=== PATIENT | female | born 1950 | race Caucasian/White ===

== ENCOUNTER → 2017-08-14 | Outpatient (CLI) | payer OTHER | END | disposition home or self-care (01) | LOC: PETCFH 09:51 | PROVIDERS: ATTEND Specialist | DX: K80.20 Calculus of gallbladder without cholecystitis without obstruction (principal); D25.9 Leiomyoma of uterus, unspecified; D35.02 Benign neoplasm of left adrenal gland; D73.89 Other diseases of spleen; K57.30 Diverticulosis of large intestine without perforation or abscess without bleeding; I25.10 Atherosclerotic heart disease of native coronary artery without angina pectoris; I65.23 Occlusion and stenosis of bilateral carotid arteries; R91.1 Solitary pulmonary nodule; C83.10 Mantle cell lymphoma, unspecified site; D72.820 Lymphocytosis (symptomatic) | CPT/HCPCS: 78815; A9552 ==

== ENCOUNTER → 2017-08-14 | Outpatient (CLI) | payer OTHER | END | disposition home or self-care (01) | LOC: CFH 09:57 | PROVIDERS: ATTEND Specialist | DX: I08.2 Rheumatic disorders of both aortic and tricuspid valves (principal); I10 Essential (primary) hypertension; J44.9 Chronic obstructive pulmonary disease, unspecified; D72.820 Lymphocytosis (symptomatic); C85.90 Non-Hodgkin lymphoma, unspecified, unspecified site; Z87.891 Personal history of nicotine dependence | CPT/HCPCS: 93306 ==

== ENCOUNTER 2017-08-26 16:20 | Day surgery (SDC) | payer OTHER ==
[~2017-08-26] VITALS: Ht 160 cm; Wt 69.9 kg
[~2017-08-26 16:20] MED LIST: LIDOCAINE 1%, 2ML ONE
[2017-08-26] MEDS ORDERED: LACTATED RINGERS 1,000 ML IV SCH (16:42)
[2017-08-26] MEDS ORDERED: ALBU18HF INH (16:45)
[2017-08-26] MEDS ORDERED: PROP10TA PO (16:45)
[2017-08-26] MEDS ORDERED: UMEC1DIS INH (16:45)
[2017-08-26] MEDS ORDERED: TRAZ50TA18 PO (16:45)
[2017-08-26 16:57] VITALS: BP 138/79
[2017-08-26] MEDS ORDERED: LIDOCAINE 1%, 2ML SQ PRN (17:00)
[2017-08-26] MEDS ORDERED: FENTANYL PF 100 MCG/2ML ONE (19:30)
[2017-08-26] MEDS ORDERED: MIDAZOLAM 1 MG/ML, 2ML ONE (19:30)
[2017-08-26] MEDS ORDERED: CEFAZOLIN 1,000 MG ONE (19:35)
[2017-08-26] MEDS ORDERED: ONDANSETRON 2MG/ML, 2ML ONE (19:35)
[2017-08-26] MEDS ORDERED: DEXAMETHASONE 4 MG/ML, 1ML ONE (19:35)
[2017-08-26] MEDS ORDERED: PROPOFOL 10 MG/ML, 20ML ONE (19:35)
[2017-08-26] MEDS ORDERED: KETOROLAC 30 MG/1 ML ONE (19:40)
[2017-08-26] MEDS ORDERED: ALBUTEROL/IPRATROPIUM 2.5MG/0.5MG, 3 ML NPPB PRN (20:30)
[2017-08-26] MEDS ORDERED: FENTANYL PF 100 MCG/2ML IV PRN (20:30)
[2017-08-26] MEDS ORDERED: ONDANSETRON 2MG/ML, 2ML IVPush PRN ×2 (20:30→22:00)
[2017-08-26] MEDS ORDERED: PROMETHAZINE 25 MG/ML, 1ML IV PRN (20:30)
[2017-08-26] MEDS ORDERED: ACETAMINOPHEN 325 MG TABLET PO PRN (20:30)
[2017-08-26] MEDS ORDERED: OXYcodone 5 MG/5 ML ORAL.SOL UDC PO PRN (20:30)
[2017-08-26] MEDS ORDERED: DIAZEPAM 5 MG/ML, 2ML IVPush PRN (20:30)
[2017-08-26] MEDS ORDERED: hydrALAzine 20 MG/ML, 1ML IV PRN (20:30)
[2017-08-26] MEDS ORDERED: ALBUTEROL SULFATE 2.5 MG/3 ML NPPB PRN (20:30)
[2017-08-26] MEDS ORDERED: MEPERIDINE/PF 25MG/0.5ML IVPush PRN (20:30)
[2017-08-26] MEDS ORDERED: EPHEDRINE 50 MG/ML, 1ML IVPush PRN (20:30)
[2017-08-26] MEDS ORDERED: MIDAZOLAM 1 MG/ML, 2ML IV PRN (20:30)
[2017-08-26] MEDS ORDERED: LABETALOL 5MG/ML, 20ML IV PRN (20:30)
[2017-08-26] MEDS ORDERED: HYDROcodone/APAP 7.5-325MG/15ML UDC PO PRN (20:30)
[2017-08-26] MEDS ORDERED: HYDROmorphone 1 MG/ML, 1ML IV PRN (20:30)
[2017-08-26] MEDS ORDERED: METOPROLOL 1 MG/ML, 5ML IV PRN (20:30)
[2017-08-26] MEDS: HYDROcodone/APAP 5/325 TABLET PO PRN ×2 (21:48→22:29)
[2017-08-26] MEDS ORDERED: morphine SULFATE 10 MG/ML, 1ML IV PRN (22:00)
[2017-08-26] MEDS ORDERED: HYDR-3240 PO (22:01)
== END 2017-08-26 23:00 | disposition home or self-care (01) ==
LOC: OR 16:20 → 4NOR 20:53 → OR 23:00
PROVIDERS: ATTEND Surgery
DX: Z45.2 Encounter for adjustment and management of vascular access device (principal); I10 Essential (primary) hypertension; J44.9 Chronic obstructive pulmonary disease, unspecified; Z98.890 Other specified postprocedural states; Z87.891 Personal history of nicotine dependence
CPT/HCPCS: 36561; 71010; 77001; 93005; C1788; J0690; J1100; J1644; J1885; J2001; J2250; J2405; J2704; J3010; J3490; J7120

== ENCOUNTER 2017-09-24 11:00 | Inpatient (IN) | payer OTHER ==
[~2017-09-24] VITALS: Ht 160 cm; Wt 74.3 kg
[~2017-09-24 11:00] MED LIST changes: +ALBU18HF INH; +HYDR-3240 PO; -LIDOCAINE 1%, 2ML ONE; +PROP10TA PO; +TRAZ50TA18 PO; +UMEC1DIS INH
[2017-09-24 12:33] VITALS: BP 142/91
[2017-09-24 13:57] LABS: HEMATOCRIT 42.5 % (34.6-47.8); HEMOGLOBIN 14.2 g/dL (11.7-16.4); WHITE BLOOD COUNT 9.7 x10^3/uL (3.4-10)
[2017-09-24 14:07] LABS: ASPARTATE AMINO TRANSFERASE 17 U/L (15-37); BLOOD UREA NITROGEN 13 mg/dL (7-18)
[2017-09-24 14:10] LABS: LACTATE DEHYDROGENASE 286 U/L (84-246)
[2017-09-24] MEDS ORDERED: DIPHENHYDRAMINE 50 MG/ML, 1ML IVPush ONE (17:00)
[2017-09-24] MEDS ORDERED: FAMOTIDINE 20 MG/2 ML IVPush ONE (17:00)
[2017-09-24] MEDS ORDERED: ACETAMINOPHEN 325 MG TABLET PO ONE (17:00)
[2017-09-24] MEDS ORDERED: RITUXIMAB IV ONE (17:30)
[2017-09-24] MEDS ORDERED: SODIUM CHLORIDE 0.9% IV ONE ×2 (17:30→23:00)
[2017-09-24] MEDS: ALLOPURINOL 300 MG TABLET PO SCH (17:34)
[2017-09-24] MEDS: ENOXAPARIN 40 MG/0.4 ML SQ SCH (18:02)
[2017-09-24 20:41] VITALS: BP 136/80
[2017-09-24] MEDS ORDERED: SODIUM CHLORIDE 0.9% 500 ML IV ONE (22:00)
[2017-09-24] MEDS ORDERED: FOSAPREPITANT 150 MG in SODIUM CHLORIDE 0.9% 150 ML IV ONE (22:30)
[2017-09-24] MEDS ORDERED: ONDANSETRON 16 MG, DEXAMETHASONE 10 MG in SODIUM CHLORIDE 0.9% 50 ML IVPB SCH (22:30)
[2017-09-24] MEDS ORDERED: CISPLATIN IV ONE (23:00)
[2017-09-24] MEDS: DEXAMETHASONE 4 MG TABLET PO SCH (23:49)
[2017-09-25] MEDS: SODIUM CHLORIDE 0.9% 1,000 ML IV SCH ×3 (00:19→18:10)
[2017-09-25 01:37] VITALS: BP 105/62
[2017-09-25 06:14] LABS: HEMATOCRIT 38.2 % (34.6-47.8); HEMOGLOBIN 13.1 g/dL (11.7-16.4); WHITE BLOOD COUNT 7.2 x10^3/uL (3.4-10)
[2017-09-25 06:25] LABS: BLOOD UREA NITROGEN 13 mg/dL (7-18)
[2017-09-25 06:28] LABS: ASPARTATE AMINO TRANSFERASE 20 U/L (15-37)
[2017-09-25 09:21] VITALS: BP 157/78
[2017-09-25 13:51] VITALS: BP 144/75
[2017-09-25] MEDS: TRAZODONE 50MG TABLET PO PRN ×2 (14:51→22:32)
[2017-09-25] MEDS: ALLOPURINOL 300 MG TABLET PO SCH (18:09)
[2017-09-25] MEDS: ENOXAPARIN 40 MG/0.4 ML SQ SCH (18:09)
[2017-09-25 18:54] VITALS: BP 151/78
[2017-09-26] MEDS: DEXAMETHASONE 4 MG TABLET PO SCH ×2 (00:32→23:11)
[2017-09-26] MEDS: SODIUM CHLORIDE 0.9% 1,000 ML IV SCH ×3 (00:32→16:06)
[2017-09-26] MEDS: ONDANSETRON 16 MG, DEXAMETHASONE 10 MG in SODIUM CHLORIDE 0.9% 50 ML IVPB SCH (00:36)
[2017-09-26 00:48] VITALS: BP 150/80
[2017-09-26] MEDS: CYTARABINE IV SCH ×2 (03:04→14:17)
[2017-09-26] MEDS: SODIUM CHLORIDE 0.9% IV SCH ×2 (03:04→14:17)
[2017-09-26 03:13] LABS: HEMATOCRIT 37.4 % (34.6-47.8); HEMOGLOBIN 12.5 g/dL (11.7-16.4); WHITE BLOOD COUNT 14.2 x10^3/uL (3.4-10)
[2017-09-26 03:20] LABS: ASPARTATE AMINO TRANSFERASE 43 U/L (15-37); BLOOD UREA NITROGEN 13 mg/dL (7-18)
[2017-09-26 08:41] VITALS: BP 154/84
[2017-09-26] MEDS ORDERED: DOCUSATE 100 MG CAPSULE PO PRN (09:30)
[2017-09-26] MEDS ORDERED: PROCHLORPERAZINE 10MG TABLET PO PRN (09:30)
[2017-09-26] MEDS: DEXAMETHASONE OPHTH 0.1%, 5ML EACHEYE SCH ×2 (09:35→20:28)
[2017-09-26 14:19] VITALS: BP 168/73
[2017-09-26] MEDS: ALLOPURINOL 300 MG TABLET PO SCH (16:09)
[2017-09-26] MEDS: ENOXAPARIN 40 MG/0.4 ML SQ SCH (16:46)
[2017-09-26 18:49] VITALS: BP 154/79
[2017-09-26] MEDS ORDERED: ACETAMINOPHEN 325 MG TABLET ONE (20:23)
[2017-09-26] MEDS: TRAZODONE 50MG TABLET PO PRN (20:27)
[2017-09-26] MEDS ORDERED: ACETAMINOPHEN 325 MG TABLET PO PRN (20:30)
[2017-09-27] MEDS: SODIUM CHLORIDE 0.9% 1,000 ML IV SCH ×2 (00:32→08:02)
[2017-09-27] MEDS: ONDANSETRON 16 MG, DEXAMETHASONE 10 MG in SODIUM CHLORIDE 0.9% 50 ML IVPB SCH (00:32)
[2017-09-27 03:18] LABS: HEMOGLOBIN 13.1 g/dL (11.7-16.4); WHITE BLOOD COUNT 17.9 x10^3/uL (3.4-10)
[2017-09-27 03:25] LABS: ASPARTATE AMINO TRANSFERASE 30 U/L (15-37); BLOOD UREA NITROGEN 20 mg/dL (7-18)
[2017-09-27 05:14] VITALS: BP 151/72
[2017-09-27 06:46] VITALS: BP 154/83
[2017-09-27] MEDS: DEXAMETHASONE OPHTH 0.1%, 5ML EACHEYE SCH (08:03)
[2017-09-27] MEDS ORDERED: DEXA5DRO EACHEYE (13:12)
[2017-09-27] MEDS: DEXAMETHASONE 4 MG TABLET PO SCH (13:30)
== END 2017-09-27 13:50 | disposition home or self-care (01) | DRG 847 ==
LOC: 3NW 11:55
PROVIDERS: ADMIT Specialist; ATTEND Specialist
DX: Z51.11 Encounter for antineoplastic chemotherapy (principal); C83.10 Mantle cell lymphoma, unspecified site; J44.9 Chronic obstructive pulmonary disease, unspecified; D15.0 Benign neoplasm of thymus; E78.5 Hyperlipidemia, unspecified; R91.1 Solitary pulmonary nodule
CPT/HCPCS: 36415; 71010; 80053; 83615; 83735; 84550; 85025; 93005; J1100; J1453; J1650; J2405; J9060; J9100; J9310; Q0164; J1200; J7030; J7040; J7050; S0028

== ENCOUNTER 2017-10-08 17:28 | Inpatient (IN) | payer OTHER ==
[~2017-10-08] VITALS: Ht 160 cm; Wt 72.1 kg
[~2017-10-08 17:28] MED LIST changes: +DEXA5DRO EACHEYE
[2017-10-08] MEDS ORDERED: ONDANSETRON 2MG/ML, 2ML IVPush ONE (18:30)
[2017-10-08] MEDS ORDERED: SODIUM CHLORIDE FLUSH 10ML SYR IVF ONE (18:30)
[2017-10-08] MEDS ORDERED: SODIUM CHLORIDE 0.9% 1,000ML IVBOLUS ONE (18:30)
[2017-10-08] MEDS ORDERED: ONDANSETRON 2MG/ML, 2ML ONE (18:55)
[2017-10-08 18:56] LABS: HEMATOCRIT 37.7 % (34.6-47.8); HEMOGLOBIN 12.5 g/dL (11.7-16.4); WHITE BLOOD COUNT 38.5 x10^3/uL (3.4-10)
[2017-10-08] MEDS ORDERED: methylPREDNISolone SOD SUCC 125 MG/2 ML IVPush ONE (19:00)
[2017-10-08] MEDS ORDERED: ALBUTEROL/IPRATROPIUM 2.5MG/0.5MG, 3 ML NPPB ONE (19:00)
[2017-10-08] MEDS ORDERED: ALBUTEROL SULFATE 2.5 MG/3 ML NPPB ONE (19:00)
[2017-10-08 19:06] LABS: ASPARTATE AMINO TRANSFERASE 25 U/L (15-37); BLOOD UREA NITROGEN 16 mg/dL (7-18)
[2017-10-08 19:09] LABS: RAPID INFLUENZA A Negative (Negative); RAPID INFLUENZA B Negative (Negative)
[2017-10-08 19:11] LABS: IS PT STATUS REG ER OR PRE ER? YES
[2017-10-08] MEDS ORDERED: ALBUTEROL/IPRATROPIUM 2.5MG/0.5MG, 3 ML ONE (19:21)
[2017-10-08] MEDS ORDERED: methylPREDNISolone SOD SUCC 125 MG/2 ML ONE (19:41)
[2017-10-08 20:14] LABS: DIFF TOTAL CELLS COUNTED 200 CELL DIFF
[2017-10-08 20:16] LABS: VERIFY COUNTS? YES
[2017-10-08 20:19] LABS: SMALL PLATELETS 1+
[2017-10-08] MEDS: VANCOMYCIN 1,300 MG in SODIUM CHLORIDE 0.9% 250 ML IV ONE ×2 (20:30→22:59)
[2017-10-08] MEDS ORDERED: CEFEPIME 2 GM in DEXTROSE 5% 100 ML IV ONE (20:30)
[2017-10-08] MEDS ORDERED: PHARMACOKINETIC CONSULTATION MC ONE ×2 (20:30→22:30)
[2017-10-08] MEDS ORDERED: CEFEPIME 2 GM in DEXTROSE 5% 50 ML IV ONE (20:30)
[2017-10-08] MEDS ORDERED: VANCOMYCIN PER PHARMACY MC ONE (20:30)
[2017-10-08] MEDS ORDERED: DOCUSATE 100 MG CAPSULE PO PRN (21:30)
[2017-10-08] MEDS ORDERED: ACETAMINOPHEN 325 MG TABLET PO PRN (21:30)
[2017-10-08] MEDS ORDERED: VANCOMYCIN PER PHARMACY MC PRN (21:30)
[2017-10-08] MEDS ORDERED: POTASSIUM CHLORIDE 20 MEQ TAB.ER.PRT PO ONE (22:00)
[2017-10-08 22:14] VITALS: BP 139/76
[2017-10-08] MEDS ORDERED: PHARMACOKINETIC MONITORING MC PRN (22:30)
[2017-10-08] MEDS ORDERED: CEFEPIME 2 GM in DEXTROSE 5% 50 ML IV SCH (22:30)
[2017-10-08] MEDS ORDERED: VANCOMYCIN 1,300 MG in SODIUM CHLORIDE 0.9% 250 ML IV SCH (22:30)
[2017-10-08] MEDS: SODIUM CHLORIDE 0.9% 1,000 ML IV SCH (22:59)
[2017-10-08] MEDS: ENOXAPARIN 40 MG/0.4 ML SQ SCH (23:21)
[2017-10-08] MEDS: TEMAZEPAM 15 MG CAPSULE PO PRN (23:21)
[2017-10-08] MEDS: TRAZODONE 50MG TABLET PO SCH (23:26)
[2017-10-09] MEDS: PROPRANOLOL 10 MG TABLET PO SCH ×3 (00:12→20:26)
[2017-10-09] MEDS: DEXAMETHASONE OPHTH 0.1%, 5ML EACHEYE SCH ×3 (00:14→20:26)
[2017-10-09] MEDS: ALBUTEROL/IPRATROPIUM 2.5MG/0.5MG, 3 ML HHN SCH ×5 (01:00→20:50)
[2017-10-09 01:17] VITALS: BP 128/69
[2017-10-09] MEDS: methylPREDNISolone SOD SUCC 40 MG/ML IVPush SCH ×3 (03:41→19:10)
[2017-10-09] MEDS ORDERED: CEFEPIME 2 GM in DEXTROSE 5% 100 ML IV SCH (04:30)
[2017-10-09] MEDS: CEFEPIME 2 GM in DEXTROSE 5% 50 ML IV SCH ×3 (05:32→20:25)
[2017-10-09 06:31] LABS: BLOOD UREA NITROGEN 13 mg/dL (7-18)
[2017-10-09 06:33] LABS: HEMATOCRIT 32.7 % (34.6-47.8); WHITE BLOOD COUNT 38.2 x10^3/uL (3.4-10)
[2017-10-09] MEDS ORDERED: MAGNESIUM SULFATE PMX 2GM/50ML 50 ML IV ONE (07:00)
[2017-10-09 07:06] LABS: DIFF TOTAL CELLS COUNTED 100 CELL DIFF
[2017-10-09 07:08] LABS: VERIFY COUNTS? YES
[2017-10-09 07:09] LABS: ANISOCYTOSIS 1+
[2017-10-09 08:46] VITALS: BP 136/71
[2017-10-09] MEDS: TEMPLATE NON-FORMULARY MED. (Umeclidinium Brm/Vilanterol Tr (Anoro Ellipta 62.5-25 Mcg Inh INH SCH (09:00)
[2017-10-09] MEDS: SODIUM CHLORIDE 0.9% 1,000 ML IV SCH ×2 (11:01→12:55)
[2017-10-09 14:31] VITALS: BP 135/82
[2017-10-09] MEDS: VANCOMYCIN 1,300 MG in SODIUM CHLORIDE 0.9% 250 ML IV SCH (17:05)
[2017-10-09 19:17] VITALS: BP 150/86
[2017-10-09] MEDS: TRAZODONE 50MG TABLET PO SCH (20:26)
[2017-10-09] MEDS: ENOXAPARIN 40 MG/0.4 ML SQ SCH (20:26)
[2017-10-09] MEDS: GUAIFENESIN/COD200MG-20MG/10ML LIQUID PO PRN (22:20)
[2017-10-10] MEDS: SODIUM CHLORIDE 0.9% 1,000 ML IV SCH ×2 (00:19→11:15)
[2017-10-10] MEDS: methylPREDNISolone SOD SUCC 40 MG/ML IVPush SCH (02:17)
[2017-10-10 02:54] VITALS: BP 146/82
[2017-10-10] MEDS: GUAIFENESIN/COD200MG-20MG/10ML LIQUID PO PRN ×4 (04:44→22:35)
[2017-10-10] MEDS: CEFEPIME 2 GM in DEXTROSE 5% 50 ML IV SCH ×3 (05:03→20:47)
[2017-10-10 05:38] LABS: BLOOD UREA NITROGEN 13 mg/dL (7-18)
[2017-10-10 05:44] LABS: HEMATOCRIT 31.8 % (34.6-47.8); HEMOGLOBIN 10.7 g/dL (11.7-16.4); WHITE BLOOD COUNT 48.5 x10^3/uL (3.4-10)
[2017-10-10 06:52] LABS: DIFF TOTAL CELLS COUNTED 100 CELL DIFF
[2017-10-10] MEDS: ALBUTEROL/IPRATROPIUM 2.5MG/0.5MG, 3 ML HHN SCH ×4 (07:00→19:08)
[2017-10-10 07:04] VITALS: BP 155/80
[2017-10-10 07:05] LABS: ANISOCYTOSIS 1+; VERIFY COUNTS? YES
[2017-10-10] MEDS: DEXAMETHASONE OPHTH 0.1%, 5ML EACHEYE SCH ×2 (08:59→20:47)
[2017-10-10] MEDS: TEMPLATE NON-FORMULARY MED. (Umeclidinium Brm/Vilanterol Tr (Anoro Ellipta 62.5-25 Mcg Inh INH SCH (09:00)
[2017-10-10] MEDS: PROPRANOLOL 10 MG TABLET PO SCH ×2 (09:00→20:48)
[2017-10-10 12:41] VITALS: BP 160/92
[2017-10-10] MEDS ORDERED: MAGNESIUM SULFATE PMX 2GM/50ML 50 ML IV ONE (13:00)
[2017-10-10] MEDS: VANCOMYCIN 1,300 MG in SODIUM CHLORIDE 0.9% 250 ML IV SCH (17:58)
[2017-10-10 19:32] VITALS: BP 162/78
[2017-10-10] MEDS: TRAZODONE 50MG TABLET PO SCH (20:48)
[2017-10-10] MEDS: ENOXAPARIN 40 MG/0.4 ML SQ SCH (20:48)
[2017-10-11] MEDS: SODIUM CHLORIDE 0.9% 1,000 ML IV SCH ×3 (01:38→23:46)
[2017-10-11 01:42] VITALS: BP 162/83
[2017-10-11] MEDS: GUAIFENESIN/COD200MG-20MG/10ML LIQUID PO PRN (05:00)
[2017-10-11] MEDS: CEFEPIME 2 GM in DEXTROSE 5% 50 ML IV SCH ×3 (05:13→20:06)
[2017-10-11 05:26] LABS: HEMATOCRIT 33.7 % (34.6-47.8); HEMOGLOBIN 11.4 g/dL (11.7-16.4); WHITE BLOOD COUNT 44.3 x10^3/uL (3.4-10)
[2017-10-11 05:39] LABS: BLOOD UREA NITROGEN 11 mg/dL (7-18)
[2017-10-11 06:43] LABS: DIFF TOTAL CELLS COUNTED 100 CELL DIFF
[2017-10-11 06:49] LABS: VERIFY COUNTS? YES
[2017-10-11 06:51] LABS: ANISOCYTOSIS 1+
[2017-10-11] MEDS: ALBUTEROL/IPRATROPIUM 2.5MG/0.5MG, 3 ML HHN SCH ×4 (07:00→19:18)
[2017-10-11] MEDS: DEXAMETHASONE OPHTH 0.1%, 5ML EACHEYE SCH ×2 (08:00→20:06)
[2017-10-11] MEDS: PROPRANOLOL 10 MG TABLET PO SCH ×2 (08:00→20:07)
[2017-10-11] MEDS: TEMPLATE NON-FORMULARY MED. (Umeclidinium Brm/Vilanterol Tr (Anoro Ellipta 62.5-25 Mcg Inh INH SCH (08:01)
[2017-10-11 09:02] VITALS: BP 140/78
[2017-10-11 14:26] VITALS: BP 164/84
[2017-10-11] MEDS: VANCOMYCIN 1,300 MG in SODIUM CHLORIDE 0.9% 250 ML IV SCH (18:15)
[2017-10-11 19:50] VITALS: BP 171/90
[2017-10-11] MEDS: TRAZODONE 50MG TABLET PO SCH (20:07)
[2017-10-11] MEDS: ENOXAPARIN 40 MG/0.4 ML SQ SCH (20:08)
[2017-10-11] MEDS: TEMAZEPAM 15 MG CAPSULE PO PRN (20:08)
[2017-10-12 01:58] VITALS: BP 162/84
[2017-10-12] MEDS: CEFEPIME 2 GM in DEXTROSE 5% 50 ML IV SCH ×3 (04:58→20:47)
[2017-10-12 05:41] LABS: HEMATOCRIT 32.8 % (34.6-47.8); HEMOGLOBIN 11.2 g/dL (11.7-16.4); WHITE BLOOD COUNT 32.5 x10^3/uL (3.4-10)
[2017-10-12 06:08] LABS: DIFF TOTAL CELLS COUNTED 100 CELL DIFF
[2017-10-12 06:10] LABS: ANISOCYTOSIS 1+; VERIFY COUNTS? YES
[2017-10-12 06:11] LABS: HYPOCHROMIA 1+
[2017-10-12 06:22] LABS: BLOOD UREA NITROGEN 10 mg/dL (7-18)
[2017-10-12] MEDS: ALBUTEROL/IPRATROPIUM 2.5MG/0.5MG, 3 ML HHN SCH ×4 (07:08→20:55)
[2017-10-12] MEDS: DEXAMETHASONE OPHTH 0.1%, 5ML EACHEYE SCH ×2 (08:14→20:47)
[2017-10-12] MEDS: SODIUM CHLORIDE 0.9% 1,000 ML IV SCH (08:14)
[2017-10-12] MEDS: TEMPLATE NON-FORMULARY MED. (Umeclidinium Brm/Vilanterol Tr (Anoro Ellipta 62.5-25 Mcg Inh INH SCH (08:14)
[2017-10-12] MEDS: PROPRANOLOL 10 MG TABLET PO SCH ×2 (08:15→20:46)
[2017-10-12 08:20] VITALS: BP 144/77
[2017-10-12] MEDS ORDERED: POTASSIUM CHLORIDE 40 MEQ in SODIUM CHLORIDE 0.9% 500 ML IV ONE (10:00)
[2017-10-12] MEDS ORDERED: MAGNESIUM SULFATE PMX 2GM/50ML 50 ML IV ONE (10:00)
[2017-10-12] MEDS: ONDANSETRON ODT 4 MG PO PRN (10:03)
[2017-10-12 14:00] VITALS: BP 120/70
[2017-10-12 14:06] VITALS: BP 133/73
[2017-10-12 16:51] LABS: BLOOD UREA NITROGEN 12 mg/dL (7-18)
[2017-10-12] MEDS: VANCOMYCIN 1,300 MG in SODIUM CHLORIDE 0.9% 250 ML IV SCH (18:05)
[2017-10-12 19:42] VITALS: BP 126/68
[2017-10-12] MEDS: ENOXAPARIN 40 MG/0.4 ML SQ SCH (20:48)
[2017-10-12] MEDS: TRAZODONE 50MG TABLET PO SCH (21:00)
[2017-10-12] MEDS: TEMAZEPAM 15 MG CAPSULE PO PRN (21:03)
[2017-10-13] MEDS: SODIUM CHLORIDE 0.9% 1,000 ML IV SCH ×2 (00:02→08:21)
[2017-10-13 04:40] VITALS: BP 119/64
[2017-10-13] MEDS: CEFEPIME 2 GM in DEXTROSE 5% 50 ML IV SCH ×3 (05:09→21:07)
[2017-10-13 05:17] VITALS: BP 165/86
[2017-10-13 05:31] LABS: HEMATOCRIT 30.3 % (34.6-47.8); HEMOGLOBIN 10.3 g/dL (11.7-16.4); WHITE BLOOD COUNT 29.2 x10^3/uL (3.4-10)
[2017-10-13 05:41] LABS: BLOOD UREA NITROGEN 11 mg/dL (7-18)
[2017-10-13 07:02] LABS: DIFF TOTAL CELLS COUNTED 100 CELL DIFF
[2017-10-13 07:04] LABS: ANISOCYTOSIS 1+; VERIFY COUNTS? YES
[2017-10-13] MEDS: ALBUTEROL/IPRATROPIUM 2.5MG/0.5MG, 3 ML HHN SCH ×2 (07:15→11:00)
[2017-10-13 07:50] VITALS: BP 146/73
[2017-10-13] MEDS: PROPRANOLOL 10 MG TABLET PO SCH ×2 (08:21→21:06)
[2017-10-13] MEDS: TEMPLATE NON-FORMULARY MED. (Umeclidinium Brm/Vilanterol Tr (Anoro Ellipta 62.5-25 Mcg Inh INH SCH (08:22)
[2017-10-13] MEDS: DEXAMETHASONE OPHTH 0.1%, 5ML EACHEYE SCH ×2 (08:22→21:06)
[2017-10-13] MEDS: GUAIFENESIN/COD200MG-20MG/10ML LIQUID PO PRN (08:22)
[2017-10-13] MEDS: VANCOMYCIN 1,200 MG in SODIUM CHLORIDE 0.9% 250 ML IV SCH (12:08)
[2017-10-13] MEDS: ONDANSETRON ODT 4 MG PO PRN (12:08)
[2017-10-13] MEDS ORDERED: MAGNESIUM SULFATE PMX 2GM/50ML 50 ML IV ONE (13:30)
[2017-10-13 13:55] VITALS: BP 145/79
[2017-10-13] MEDS: FAMOTIDINE 20 MG TABLET PO SCH (14:54)
[2017-10-13] MEDS: NS + 40MEQ KCL 1,000 ML IV SCH (14:54)
[2017-10-13 19:44] VITALS: BP 172/96
[2017-10-13] MEDS: TRAZODONE 50MG TABLET PO SCH (21:00)
[2017-10-13] MEDS: TEMAZEPAM 15 MG CAPSULE PO PRN (21:06)
[2017-10-13] MEDS: ENOXAPARIN 40 MG/0.4 ML SQ SCH (21:06)
[2017-10-14 02:15] VITALS: BP 166/88
[2017-10-14] MEDS: NS + 40MEQ KCL 1,000 ML IV SCH (03:35)
[2017-10-14 04:40] LABS: HEMATOCRIT 28.7 % (34.6-47.8); HEMOGLOBIN 9.6 g/dL (11.7-16.4); WHITE BLOOD COUNT 23.5 x10^3/uL (3.4-10)
[2017-10-14] MEDS: CEFEPIME 2 GM in DEXTROSE 5% 50 ML IV SCH (04:41)
[2017-10-14 05:03] LABS: BLOOD UREA NITROGEN 13 mg/dL (7-18)
[2017-10-14 05:25] LABS: DIFF TOTAL CELLS COUNTED 100 CELL DIFF
[2017-10-14 05:27] LABS: ANISOCYTOSIS 1+; VERIFY COUNTS? YES
[2017-10-14 05:28] LABS: POLYCHROMASIA 1+
[2017-10-14] MEDS: VANCOMYCIN 1,200 MG in SODIUM CHLORIDE 0.9% 250 ML IV SCH (06:13)
[2017-10-14] MEDS ORDERED: ALBUTEROL/IPRATROPIUM 2.5MG/0.5MG, 3 ML HHN PRN (07:00)
[2017-10-14 07:42] VITALS: BP 168/89
[2017-10-14] MEDS ORDERED: DOXY100T10 PO (08:29)
[2017-10-14] MEDS: TEMPLATE NON-FORMULARY MED. (Umeclidinium Brm/Vilanterol Tr (Anoro Ellipta 62.5-25 Mcg Inh INH SCH (09:00)
[2017-10-14] MEDS: FAMOTIDINE 20 MG TABLET PO SCH (09:28)
[2017-10-14] MEDS: PROPRANOLOL 10 MG TABLET PO SCH (09:28)
[2017-10-14] MEDS: DEXAMETHASONE OPHTH 0.1%, 5ML EACHEYE SCH (09:28)
== END 2017-10-14 10:10 | disposition home or self-care (01) | DRG 871 ==
LOC: ED 18:32 → EDIP 20:35 → 3NW 22:00
PROVIDERS: ADMIT Internal Medicine; ATTEND Internal Medicine
DX: A41.9 Sepsis, unspecified organism (principal); J96.21 Acute and chronic respiratory failure with hypoxia; J15.6 Pneumonia due to other Gram-negative bacteria; J44.0 Chronic obstructive pulmonary disease with (acute) lower respiratory infection; C83.10 Mantle cell lymphoma, unspecified site; J44.1 Chronic obstructive pulmonary disease with (acute) exacerbation; E87.6 Hypokalemia; E83.42 Hypomagnesemia; T38.0X5A Adverse effect of glucocorticoids and synthetic analogues, initial encounter; Y95 Nosocomial condition; Z79.899 Other long term (current) drug therapy; Z87.891 Personal history of nicotine dependence; Z99.81 Dependence on supplemental oxygen; E83.51 Hypocalcemia
CPT/HCPCS: 36415; 71010; 71020; 80048; 80053; 80202; 83605; 83735; 84100; 84145; 84484; 85025; 85610; 85730; 87040; 87070; 87205; 87400; 93005; 94640; 96361; 96365; 96375; J1650; J2405; J3370; J3480; J7613; J7620; Q0162; J2920; J2930; J3475; J7030; J7040; J7050; J7512

== ENCOUNTER → 2017-12-04 | Outpatient (CLI) | payer OTHER ==
[~2017-12-04] MED LIST changes: +DOXY100T10 PO; +LORA-446 PO; +ONDA4TAB7 PO; +PROC10TA78 PO
== END | disposition home or self-care (01) ==
LOC: PETCFH 08:21
PROVIDERS: ATTEND Specialist
DX: C85.80 Other specified types of non-Hodgkin lymphoma, unspecified site (principal); R91.8 Other nonspecific abnormal finding of lung field
CPT/HCPCS: 78815; A9552

== ENCOUNTER → 2018-03-18 | Outpatient (CLI) | payer OTHER ==
[~2018-03-18] MED LIST changes: +DEX; +dexamethasone PO
== END | disposition home or self-care (01) ==
LOC: PETCFH 08:31
PROVIDERS: ATTEND Specialist
DX: R91.8 Other nonspecific abnormal finding of lung field (principal); C83.10 Mantle cell lymphoma, unspecified site
CPT/HCPCS: 78815; A9552

== ENCOUNTER 2018-11-15 21:37 | Inpatient (IN) | payer OTHER ==
[~2018-11-15] VITALS: Ht 160 cm; Wt 77.3 kg
[~2018-11-15 21:37] MED LIST changes: -PROP10TA PO; +PROP10TA16 PO; -TRAZ50TA18 PO; +TRAZ50TA66 PO
--- NOTE | 2018-11-15 21:55 | NUR ---
PT TO ED FOR WORSENING SOB STARTING TODAY. FAMILY MEMBERS AT HOME WTIH URI. HX COPD. INCREASED NEED FOR HOME O2 FROM 4L TO 5L. IV PLACED ATTORNEY AT LAW. 2 ALBUTEROL AND 1 DUONEB TREATMENT GIVEN ATTORNEY AT LAW. CONNECTED TO ALL MONITORS. TACHY, HTN, INCREASED RR AND FEBRILE. TECH AT BEDSIDE TO COMPLETE EKG. FAMILY AT BEDSIDE. CALL LIGHT WTIHIN REACH. NO NEEDS AT THIS TIME.
--- NOTE | 2018-11-15 22:00 | NUR ---
PA TO BEDSIDE FOR ASSESSMENT.
--- NOTE | 2018-11-15 22:22 | NUR ---
PA TO IMAGING
[2018-11-15] MEDS ORDERED: methylPREDNISolone SOD SUCC 125 MG/2 ML IVP ONE (22:30)
--- NOTE | 2018-11-15 22:30 | NUR ---
PT BACK FORM IMAGING. LAB AT BEDSIDE FOR DRAW.
[2018-11-15] MEDS ORDERED: methylPREDNISolone SOD SUCC 125 MG/2 ML ONE (22:46)
[2018-11-15] MEDS ORDERED: ONDANSETRON 2MG/ML, 2ML ONE (22:46)
[2018-11-15 22:51] LABS: MEAN CORPUSCULAR HEMOGLOBIN 32.2 pg (27.0-34.8); MEAN CORPUSCULAR HGB CONC 33.8 g/dL (32.4-35.8); MEAN CORPUSCULAR VOLUME 95.2 fL (80-100); MEAN PLATELET VOLUME 6.9 fL (7.4-10.4); PLATELET COUNT 331 x10^3/uL (130-400); RED BLOOD COUNT 4.13 x10^6/uL (3.82-5.3); RED CELL DISTRIBUTION WIDTH 13.9 % (9.6-15.2)
--- NOTE | 2018-11-15 22:56 | NUR ---
RECEIVED REPORT FROM MEAGAN WEINSTEIN.
[2018-11-15 22:59] LABS: ALANINE AMINOTRANSFERASE 33 U/L (12-78); ALBUMIN 3.3 g/dL (3.4-5.0); ANION GAP 8 mmol/L (5-15); CALCIUM 9.8 mg/dL (8.5-10.1); CHLORIDE 103 mmol/L (98-107); CREATININE 0.77 mg/dL (0.55-1.02)
[2018-11-15] MEDS ORDERED: ONDANSETRON 2MG/ML, 2ML IVPush ONE (23:00)
[2018-11-15 23:04] LABS: ALKALINE PHOSPHATASE 134 U/L (45-117); BILIRUBIN,TOTAL 0.3 mg/dL (0.2-1.0); TOTAL PROTEIN 7.4 g/dL (6.4-8.2); TROPONIN I < 0.015 ng/mL (0.000-0.045)
[2018-11-15 23:31] LABS: BASOPHILS # (AUTO) 0.05 x10^3/uL (0-0.1); BASOPHILS % (AUTO) 0 % (0-1); EOSINOPHILS # (AUTO) 0.11 x10^3/uL (0-0.4); EOSINOPHILS % (AUTO) 1 % (1-7); LYMPHOCYTES # (AUTO) 0.75 x10^3/uL (1-3.4); LYMPHOCYTES % (AUTO) 6 % (22-44); MD SCAN; MONOCYTES # (AUTO) 1.46 x10^3/uL (0.2-0.8); MONOCYTES % (AUTO) 11 % (2-9); NEUTROPHILS # (AUTO) 10.89 x10^3/uL (1.8-6.8); NEUTROPHILS % (AUTO) 82 % (42-75)
[2018-11-16] MEDS ORDERED: SODIUM CHLORIDE FLUSH 10ML SYR IVF PRN
--- NOTE | 2018-11-16 00:24 | NUR ---
REPORT CALLED TO FLOOR AND READY FOT TRANSPORT.
[2018-11-16] MEDS ORDERED: ONDANSETRON 2MG/ML, 2ML IVPush PRN (00:30)
[2018-11-16] MEDS ORDERED: LORazepam 1MG TABLET PO PRN (00:30)
[2018-11-16] MEDS ORDERED: methylPREDNISolone SOD SUCC 125 MG/2 ML IVPush SCH (00:30)
[2018-11-16] MEDS ORDERED: POLYETHYLENE GLYCOL 17 GM PACKET PO PRN (00:30)
[2018-11-16] MEDS ORDERED: BISACODYL 10 MG SUPP PR PRN (00:30)
[2018-11-16] MEDS ORDERED: GUAIFENESIN/DM 200-20MG, 10ML UDC PO PRN (00:30)
[2018-11-16] MEDS ORDERED: CEFTRIAXONE PMX 1GM/50ML 50 ML ONE (00:30)
[2018-11-16] MEDS: HEPARIN 5,000 UNITS/ML, 1ML SQ SCH ×3 (00:30→16:30)
[2018-11-16] MEDS ORDERED: ACETAMINOPHEN 325 MG TABLET PO PRN (00:30)
[2018-11-16] MEDS: CEFTRIAXONE PMX 1GM/50ML 50 ML IV SCH (00:32)
--- NOTE | 2018-11-16 00:40 | NUR ---
pt to ct
[2018-11-16 00:44] VITALS: BP 127/77
[2018-11-16 01:15] VITALS: BP 117/72
[2018-11-16 01:48] LABS: MICROSCOPIC INDICATED
[2018-11-16] MEDS: NS + 20MEQ KCL 1,000 ML IV SCH ×2 (01:48→12:16)
[2018-11-16] MEDS: DOXYCYCLINE 100 MG in DEXTROSE 5% 250 ML IV SCH ×2 (01:48→12:15)
[2018-11-16] MEDS: TRAZODONE 50MG TABLET PO SCH ×2 (01:49→20:25)
[2018-11-16 01:55] LABS: CULTURE INDICATED? NO
[2018-11-16 05:36] LABS: BASOPHILS # (AUTO) 0.02 x10^3/uL (0-0.1); BASOPHILS % (AUTO) 0 % (0-1); EOSINOPHILS # (AUTO) 0.01 x10^3/uL (0-0.4); EOSINOPHILS % (AUTO) 0 % (1-7); LYMPHOCYTES # (AUTO) 0.76 x10^3/uL (1-3.4); LYMPHOCYTES % (AUTO) 7 % (22-44); MD NO; MEAN CORPUSCULAR HEMOGLOBIN 32.1 pg (27.0-34.8); MEAN CORPUSCULAR HGB CONC 33.5 g/dL (32.4-35.8); MEAN PLATELET VOLUME 7.2 fL (7.4-10.4); MONOCYTES # (AUTO) 0.17 x10^3/uL (0.2-0.8); MONOCYTES % (AUTO) 2 % (2-9); NEUTROPHILS % (AUTO) 92 % (42-75); PLATELET COUNT 329 x10^3/uL (130-400); RED BLOOD COUNT 3.97 x10^6/uL (3.82-5.3); RED CELL DISTRIBUTION WIDTH 14.6 % (9.6-15.2)
[2018-11-16 05:47] LABS: ALANINE AMINOTRANSFERASE 30 U/L (12-78); ALBUMIN 3.2 g/dL (3.4-5.0); ANION GAP 8 mmol/L (5-15); CALCIUM 9.9 mg/dL (8.5-10.1); CHLORIDE 102 mmol/L (98-107); CREATININE 1.02 mg/dL (0.55-1.02)
[2018-11-16 05:50] LABS: ALKALINE PHOSPHATASE 139 U/L (45-117); BILIRUBIN,TOTAL 0.3 mg/dL (0.2-1.0); TOTAL PROTEIN 7.4 g/dL (6.4-8.2)
[2018-11-16 06:45] VITALS: BP 126/79
[2018-11-16] MEDS: ALBUTEROL/IPRATROPIUM 2.5MG/0.5MG, 3 ML NPPB SCH ×4 (07:00→19:46)
[2018-11-16] MEDS: SENNA/DOCUSATE TABLET PO SCH (09:00)
[2018-11-16] MEDS: methylPREDNISolone SOD SUCC 125 MG/2 ML IVPush SCH ×2 (09:20→16:35)
[2018-11-16] MEDS: PROPRANOLOL 10 MG TABLET PO SCH ×2 (09:21→20:25)
[2018-11-16] MEDS: GUAIFENESIN ER 600 MG TABLET PO SCH ×2 (09:21→20:25)
[2018-11-16 12:51] VITALS: BP 141/81
[2018-11-16] MEDS: BENZONATATE 100 MG CAPSULE PO PRN ×2 (16:35→20:25)
[2018-11-16 21:24] VITALS: BP 130/83
[2018-11-17] MEDS: HEPARIN 5,000 UNITS/ML, 1ML SQ SCH ×3 (00:30→16:23)
[2018-11-17 00:44] VITALS: BP 127/77
[2018-11-17] MEDS: NS + 20MEQ KCL 1,000 ML IV SCH ×3 (00:57→22:10)
[2018-11-17] MEDS: CEFTRIAXONE PMX 1GM/50ML 50 ML IV SCH (00:57)
[2018-11-17] MEDS: methylPREDNISolone SOD SUCC 125 MG/2 ML IVPush SCH ×3 (00:58→20:02)
[2018-11-17] MEDS: DOXYCYCLINE 100 MG in DEXTROSE 5% 250 ML IV SCH ×2 (01:53→13:22)
[2018-11-17 05:00] LABS: MEAN CORPUSCULAR HEMOGLOBIN 31.9 pg (27.0-34.8); MEAN CORPUSCULAR HGB CONC 33.1 g/dL (32.4-35.8); MEAN CORPUSCULAR VOLUME 96.5 fL (80-100); MEAN PLATELET VOLUME 6.7 fL (7.4-10.4); PLATELET COUNT 377 x10^3/uL (130-400); RED BLOOD COUNT 3.81 x10^6/uL (3.82-5.3); RED CELL DISTRIBUTION WIDTH 14.6 % (9.6-15.2)
[2018-11-17 05:04] LABS: CALCIUM 9.8 mg/dL (8.5-10.1); CREATININE 0.84 mg/dL (0.55-1.02)
[2018-11-17 05:19] LABS: ANION GAP 7 mmol/L (5-15); CHLORIDE 108 mmol/L (98-107)
[2018-11-17 05:38] LABS: MD YES
[2018-11-17 05:40] LABS: <RBC MORPHOLOGY> NORMAL; BAND#(MANUAL) 0.75 x10^3/uL; BANDS%(MANUAL) 5 % (0-7); LYMPH#(MANUAL) 1.64 x10^3/uL (1-3.4); LYMPHS% (MANUAL) 11 % (22-44); SEG#(MANUAL) 12.52 x10^3/uL (1.8-6.8); SEGS% (MANUAL) 84 % (42-75)
[2018-11-17 05:41] LABS: <PLATELET ESTIMATE> ADEQUATE; <PLT MORPHOLOGY> NORMAL PLT MORPH
[2018-11-17] MEDS: ALBUTEROL/IPRATROPIUM 2.5MG/0.5MG, 3 ML NPPB SCH ×3 (07:55→18:49)
[2018-11-17 08:42] VITALS: BP 108/83
[2018-11-17] MEDS: SENNA/DOCUSATE TABLET PO SCH (09:00)
[2018-11-17] MEDS: PROPRANOLOL 10 MG TABLET PO SCH ×2 (09:22→20:02)
[2018-11-17] MEDS: GUAIFENESIN ER 600 MG TABLET PO SCH ×2 (09:22→20:01)
[2018-11-17] MEDS: BENZONATATE 100 MG CAPSULE PO PRN ×2 (09:22→16:28)
[2018-11-17] MEDS ORDERED: MAGNESIUM SULFATE PMX 2GM/50ML 50 ML IV ONE (12:30)
[2018-11-17 14:25] VITALS: BP 128/76
[2018-11-17 19:57] VITALS: BP 130/73
[2018-11-17] MEDS: TRAZODONE 50MG TABLET PO SCH (20:01)
[2018-11-18] MEDS: BENZONATATE 100 MG CAPSULE PO PRN ×3 (00:29→17:27)
[2018-11-18] MEDS: CEFTRIAXONE PMX 1GM/50ML 50 ML IV SCH (00:29)
[2018-11-18] MEDS: HEPARIN 5,000 UNITS/ML, 1ML SQ SCH ×4 (00:29→23:35)
[2018-11-18 00:45] VITALS: BP 127/81
[2018-11-18] MEDS: DOXYCYCLINE 100 MG in DEXTROSE 5% 250 ML IV SCH (01:12)
[2018-11-18 06:21] LABS: MEAN CORPUSCULAR HGB CONC 33.5 g/dL (32.4-35.8); MEAN CORPUSCULAR VOLUME 95.5 fL (80-100); MEAN PLATELET VOLUME 6.8 fL (7.4-10.4); PLATELET COUNT 368 x10^3/uL (130-400)
[2018-11-18 06:33] LABS: ALANINE AMINOTRANSFERASE 28 U/L (12-78); ALBUMIN 2.8 g/dL (3.4-5.0); ANION GAP 4 mmol/L (5-15); CALCIUM 9.2 mg/dL (8.5-10.1); CHLORIDE 104 mmol/L (98-107)
[2018-11-18 06:35] LABS: ALKALINE PHOSPHATASE 121 U/L (45-117); BILIRUBIN,TOTAL 0.2 mg/dL (0.2-1.0); TOTAL PROTEIN 6.2 g/dL (6.4-8.2)
[2018-11-18 06:39] LABS: BASOPHILS # (AUTO) 0.02 x10^3/uL (0-0.1); BASOPHILS % (AUTO) 0 % (0-1); EOSINOPHILS % (AUTO) 0 % (1-7); LYMPHOCYTES % (AUTO) 6 % (22-44); MD SCAN; MONOCYTES # (AUTO) 0.77 x10^3/uL (0.2-0.8); MONOCYTES % (AUTO) 5 % (2-9); NEUTROPHILS # (AUTO) 13.22 x10^3/uL (1.8-6.8); NEUTROPHILS % (AUTO) 89 % (42-75)
[2018-11-18] MEDS: ALBUTEROL/IPRATROPIUM 2.5MG/0.5MG, 3 ML NPPB SCH ×4 (07:49→20:15)
[2018-11-18 08:40] VITALS: BP 176/98
[2018-11-18] MEDS: SENNA/DOCUSATE TABLET PO SCH (09:00)
[2018-11-18] MEDS: methylPREDNISolone SOD SUCC 125 MG/2 ML IVPush SCH ×2 (09:30→21:02)
[2018-11-18] MEDS: PROPRANOLOL 10 MG TABLET PO SCH ×2 (09:31→21:02)
[2018-11-18] MEDS: DOXYCYCLINE 100MG TABLET PO SCH ×2 (09:31→21:02)
[2018-11-18] MEDS: AMOXICILLIN/CLAV 875-125MG TABLET PO SCH ×2 (09:31→21:02)
[2018-11-18] MEDS: GUAIFENESIN ER 600 MG TABLET PO SCH ×2 (09:31→21:02)
[2018-11-18] MEDS: NS + 20MEQ KCL 1,000 ML IV SCH ×2 (10:29→17:25)
[2018-11-18 14:59] VITALS: BP 145/84
[2018-11-18 20:57] VITALS: BP 148/83
[2018-11-18] MEDS: TRAZODONE 50MG TABLET PO SCH (21:02)
[2018-11-19 01:00] VITALS: BP 151/81
[2018-11-19] MEDS: NS + 20MEQ KCL 1,000 ML IV SCH (05:24)
[2018-11-19 06:16] LABS: MEAN CORPUSCULAR HEMOGLOBIN 32.2 pg (27.0-34.8); MEAN CORPUSCULAR HGB CONC 33.7 g/dL (32.4-35.8); MEAN CORPUSCULAR VOLUME 95.7 fL (80-100); MEAN PLATELET VOLUME 6.7 fL (7.4-10.4); PLATELET COUNT 392 x10^3/uL (130-400); RED BLOOD COUNT 3.92 x10^6/uL (3.82-5.3)
[2018-11-19 07:00] VITALS: BP 128/78
[2018-11-19 07:21] LABS: MD YES
[2018-11-19] MEDS: HEPARIN 5,000 UNITS/ML, 1ML SQ SCH (07:21)
[2018-11-19 07:23] LABS: BAND#(MANUAL) 0.11 x10^3/uL; BANDS%(MANUAL) 1 % (0-7); LYMPHS% (MANUAL) 11 % (22-44); METAMYELOCYTES# (MANUAL) 0.11 x10^3/uL (0-0); METAMYELOCYTES% (MANUAL) 1 % (0-1); MONOS#(MANUAL) 0.76 x10^3/uL (0.3-2.7); MONOS% (MANUAL) 7 % (2-9); REACTIVE LYMPHS # (MANUAL) 0.11 x10^3/uL (0-0); REACTIVE LYMPHS % (MANUAL) 1 % (0-0); SEGS% (MANUAL) 78 % (42-75)
[2018-11-19 07:24] LABS: <PLATELET ESTIMATE> ADEQUATE; <PLT MORPHOLOGY> NORMAL PLT MORPH; <RBC MORPHOLOGY> NORMAL; MYELOCYTES# (MANUAL) 0.11 x10^3/uL (0-0); MYELOCYTES% (MANUAL) 1 % (0-0)
[2018-11-19] MEDS: ALBUTEROL/IPRATROPIUM 2.5MG/0.5MG, 3 ML NPPB SCH (07:58)
[2018-11-19] MEDS: SENNA/DOCUSATE TABLET PO SCH (09:00)
[2018-11-19] MEDS: GUAIFENESIN ER 600 MG TABLET PO SCH (10:45)
[2018-11-19] MEDS: DOXYCYCLINE 100MG TABLET PO SCH (10:45)
[2018-11-19] MEDS: PROPRANOLOL 10 MG TABLET PO SCH (10:45)
[2018-11-19] MEDS: AMOXICILLIN/CLAV 875-125MG TABLET PO SCH (10:45)
[2018-11-19] MEDS: methylPREDNISolone SOD SUCC 125 MG/2 ML IVPush SCH (10:47)
[2018-11-19] MEDS ORDERED: PRED50TA PO (11:58)
[2018-11-19] MEDS ORDERED: DOXY100T PO (11:58)
[2018-11-19] MEDS ORDERED: AMOX1TAB12 PO (11:58)
[2018-11-19] MEDS ORDERED: GUAI600T31 PO (11:58)
[2018-11-19] MEDS ORDERED: TIOT18CA INH (11:58)
[2018-11-19 13:25] VITALS: BP 138/81
== END 2018-11-19 14:13 | disposition left against medical advice (07) | DRG 871 ==
LOC: ED 23:46 → EDIP 23:51 → 3NE 11-16 01:11
PROVIDERS: ADMIT Internal Medicine; ATTEND Internal Medicine
DX: A41.9 Sepsis, unspecified organism (principal); J18.9 Pneumonia, unspecified organism; J96.21 Acute and chronic respiratory failure with hypoxia; J44.1 Chronic obstructive pulmonary disease with (acute) exacerbation; E44.1 Mild protein-calorie malnutrition; J44.0 Chronic obstructive pulmonary disease with (acute) lower respiratory infection; R65.10 Systemic inflammatory response syndrome (SIRS) of non-infectious origin without acute organ dysfunction; Z53.21 Procedure and treatment not carried out due to patient leaving prior to being seen by health care provider; E83.42 Hypomagnesemia; E87.5 Hyperkalemia; E87.6 Hypokalemia; I10 Essential (primary) hypertension; R73.9 Hyperglycemia, unspecified; R00.0 Tachycardia, unspecified; T38.0X5A Adverse effect of glucocorticoids and synthetic analogues, initial encounter; Z85.72 Personal history of non-Hodgkin lymphomas; Z87.891 Personal history of nicotine dependence; Z99.81 Dependence on supplemental oxygen; Z68.30 Body mass index [BMI] 30.0-30.9, adult; Y92.89 Other specified places as the place of occurrence of the external cause
CPT/HCPCS: 36415; 71046; 71250; 80048; 80053; 81001; 83605; 83735; 84100; 84145; 84484; 85025; 87040; 93005; 94640; 96374; 96375; G0378; J0696; J2405; J3480; J7060; J7620; J2930; J3475

== ENCOUNTER 2018-12-08 10:29 | Emergency (ER) | payer OTHER ==
[~2018-12-08] VITALS: Ht 160 cm; Wt 70.6 kg
[~2018-12-08 10:29] MED LIST changes: +AMOX1TAB12 PO; +DOXY100T PO; +GUAI600T31 PO; +PRED50TA PO; +TIOT18CA INH
--- NOTE | 2018-12-08 11:10 | NUR ---
PT RESTRING ON IVONNE. HX OF RECENT PNA, DC FROM HOSP AND FINISHED RX ABX TREATMENT. PT STATES SOB WORSENING OVER LAST 4 DAYS. CP MONITORS IN PLACE. CALL LIGHT IN REACH. FAMILY AT BEDSIDE. AWAITING ORDERS.
[2018-12-08] MEDS ORDERED: methylPREDNISolone SOD SUCC 125 MG/2 ML ONE (11:27)
[2018-12-08] MEDS ORDERED: ALBUTEROL/IPRATROPIUM 2.5MG/0.5MG, 3 ML ONE (11:29)
[2018-12-08] MEDS ORDERED: ALBUTEROL/IPRATROPIUM 2.5MG/0.5MG, 3 ML NPPB SCH (11:30)
[2018-12-08] MEDS ORDERED: methylPREDNISolone SOD SUCC 125 MG/2 ML IVP ONE (11:30)
[2018-12-08] MEDS ORDERED: SODIUM CHLORIDE FLUSH 10ML SYR IVF ONE (11:30)
--- NOTE | 2018-12-08 12:06 | NUR ---
PT MEDICATED PER EMAR AND PT PORT ACCESSED PER POLICY.
[2018-12-08 12:11] LABS: BASOPHILS # (AUTO) 0.05 x10^3/uL (0-0.1); BASOPHILS % (AUTO) 1 % (0-1); EOSINOPHILS # (AUTO) 0.48 x10^3/uL (0-0.4); EOSINOPHILS % (AUTO) 5 % (1-7); LYMPHOCYTES # (AUTO) 1.79 x10^3/uL (1-3.4); LYMPHOCYTES % (AUTO) 18 % (22-44); MD NO; MEAN CORPUSCULAR HEMOGLOBIN 31.8 pg (27.0-34.8); MEAN CORPUSCULAR HGB CONC 33.3 g/dL (32.4-35.8); MEAN CORPUSCULAR VOLUME 95.4 fL (80-100); MEAN PLATELET VOLUME 6.9 fL (7.4-10.4); MONOCYTES # (AUTO) 1.01 x10^3/uL (0.2-0.8); MONOCYTES % (AUTO) 10 % (2-9); NEUTROPHILS % (AUTO) 68 % (42-75); PLATELET COUNT 323 x10^3/uL (130-400); RED CELL DISTRIBUTION WIDTH 14.4 % (9.6-15.2)
[2018-12-08 12:17] LABS: INTERNATIONAL NORMALIZED RATIO 1.03 (0.93-1.1); PROTHROMBIN TIME 10.9 Seconds (9.6-11.5)
[2018-12-08 12:18] LABS: ALBUMIN 3.1 g/dL (3.4-5.0); ANION GAP 7 mmol/L (5-15); CALCIUM 9.3 mg/dL (8.5-10.1); CHLORIDE 104 mmol/L (98-107)
[2018-12-08 12:25] LABS: ALANINE AMINOTRANSFERASE 16 U/L (12-78); ALKALINE PHOSPHATASE 120 U/L (45-117); BILIRUBIN,TOTAL 0.3 mg/dL (0.2-1.0); CREATININE 0.81 mg/dL (0.55-1.02); TOTAL PROTEIN 6.9 g/dL (6.4-8.2); TROPONIN I < 0.015 ng/mL (0.000-0.045)
--- NOTE | 2018-12-08 13:02 | NUR ---
PT ASSISTED TO BATHROOM. AMBULATORY WITH SLOW STEADY GAIT USING HANDRAILS. BACK TO [facility]ON[facility]O MONITORS IN PLACE, ALL CONCERNS ADRESSED. CALL LIGHT IN REACH. FAMILY AT BEDSIDE.
[2018-12-08 14:12] VITALS: BP 107/45
--- NOTE | 2018-12-08 15:00 | NUR ---
PROVIDED WITH DC INSTRUCTIONS AND EDUCATION, PT CONFIRMS UNDERSTANDING. PT LEFT BY PERSONAL WC WITH FAMILY. PT LEFT WITH ALL PERSONAL BELONGINGS.
== END 2018-12-08 15:30 | disposition home or self-care (01) ==
LOC: ED 12:07
DX: J06.9 Acute upper respiratory infection, unspecified (principal); J44.1 Chronic obstructive pulmonary disease with (acute) exacerbation; J44.9 Chronic obstructive pulmonary disease, unspecified; Z87.891 Personal history of nicotine dependence
CPT/HCPCS: 36415; 71046; 80053; 83605; 83880; 84484; 85025; 85610; 85730; 87040; 93005; 94640; 96374; 99284; J2930; J7620